=== PATIENT | male | born 1985 | race Caucasian/White ===

== ENCOUNTER 2021-08-20 10:42 | Emergency (ER) | payer OTHER ==
[2021-08-20 11:39] LABS: ANION GAP 10.6 meq/L (7-15); CHLORIDE,CL 101 mmol/L (98-107); SODIUM,NA 137 mmol/L (136-145)
[2021-08-20] MEDS ORDERED: Sodium Chloride 0.9% 10 ML Syringe FLUSH PRN (12:08)
[2021-08-20] MEDS ORDERED: hydrALAZINE 20 MG/ML SDV IVPUSH ONE (12:09)
[2021-08-20 12:57] VITALS: BP 152/72; PULSE 100
== END 2021-08-20 13:10 | disposition home or self-care (01) ==
LOC: LL.ED 10:42
DX: I16.0 Hypertensive urgency (principal); E66.9 Obesity, unspecified; Z68.30 Body mass index [BMI] 30.0-30.9, adult; Z79.899 Other long term (current) drug therapy; Z87.891 Personal history of nicotine dependence
CPT/HCPCS: 36415; 80053; 85025; 93005; 93010; 96374; 99283-25; J0360; J3490